=== PATIENT | male | born 1965 | race Caucasian/White ===

== ENCOUNTER → 2016-09-29 | Day surgery (SDC) | payer BC, OTHER ==
--- NOTE | 2016-09-22 10:17 | CR ---
DATE OF CONSULTATION: 09/22/2016 REQUESTING PHYSICIAN: Dr. Amin. He is scheduled for right eye surgery with a lens implant. History of old injury to right eye. Prior surgery on right eye. No history of known cardiopulmonary disease. He smokes an occasional cigar. No cardiopulmonary symptoms with usual activities which far exceed four mets. Otherwise he is fairly healthy and has no limitations. MEDICATIONS: None. ALLERGIES: MORPHINE. SOCIAL HISTORY: Prior drug abuse. He has been clean for quite sometime. History of colon polyp (hyperplastic), laceration repair. Hyperlipidemia. Previous right eye surgery. FAMILY HISTORY: Negative for cardiac or pulmonary disease. Cardiopulmonary review of systems is negative. PHYSICAL EXAMINATION: Blood pressure is 120/80. HEENT: Eye exam per Dr. Amin. Carotids are normal. No bruits. No jugular venous distention (JVD). Heart: Was regular rate and rhythm. Chest: Was clear to auscultation. Abdomen is unremarkable. Extremities: No edema. IMPRESSION/PLAN: Healthy 51-year-old. No contraindications to scheduled ophthalmologic surgery.
[~2016-09-29] VITALS: Ht 172.7 cm; Wt 83.9 kg
[~2016-09-29] MED LIST: ACETYLCHOLINE OPHTH SOLN 1% 2ML As Ordered ONE; BSS with VANC/TOB/EPI for EYE CASES IR ONE; CEFUROXIME 1MG/0.1ML INTRACAMERAL INJ ICAM ONE; CYCLOPENTOLATE 2% OPHTH SOLN As Ordered ONE; CYCLOPENTOLATE 2% OPHTH SOLN OD ONE; HEALON DUET (HEALON 10MG/ML 0.55ML & HEALON ENDOCOAT 30MG/ML 0.85ML) As Ordered ONE; KETO5OPD OD; LIDOCAINE 2% W/EPIN INJ 20ML **PRES FREE As Ordered ONE; LIDOCAINE 4% INJ 5 ML AMP As Ordered ONE; LIDOCAINE 4% INJ 5 ML AMP OU ONE; MIDAZOLAM INJ 2 MG/2 ML VIAL (J2250) As Ordered ONE; OFLOXACIN 0.3 % (OCUFLOX) OPTH SOL 5ML OD ONE; PHENYLEPHRINE 2.5% OPHTH SOL 2ML As Ordered ONE; PHENYLEPHRINE 2.5% OPHTH SOL 2ML OD ONE; POVIDONE-IODINE 5% OPHTH PREP SOL 30ML As Ordered ONE; PREDOPD OD; PROPOFOL 200 MG/20 ML VIAL As Ordered ONE; TOBR0.3S OP; TOBRADEX OPHTH OINT 3.5 GM As Ordered ONE; TRIAMCINOLONE ACETONIDE SUSP 40 MG/ML VIAL (J3301) As Ordered ONE; TROPICAMIDE 1% OPHTH SOLN 2 ML As Ordered ONE; TROPICAMIDE 1% OPHTH SOLN 2 ML OD ONE; fentaNYL 100 MCG/2 ML INJECTION (J3010) As Ordered ONE
[2016-09-29 09:50] VITALS: BP 130/82
--- NOTE | 2016-09-30 08:43 | RO ---
DATE OF PROCEDURE: 09/29/2016 PREPROCEDURE DIAGNOSIS: Aphacia left eye. POSTPROCEDURE DIAGNOSIS: Aphacia left eye. PROCEDURE: Secondary intraocular lens Z9003 that was glued with the Haptic. SURGEON: Marli Amin MD [employer] MET[employer]ING SUPERVISOR: None. ANESTHESIA: COMPLICATIONS: None. INDICATION: Poor vision interfering with daily activities. DESCRIPTION OF PROCEDURE: The patient was brought to the operating room and laid in supine position. The right eye was prepped and draped in a sterile fashion for ophthalmic surgery and a lid speculum was placed. Prior to that, 4 mL of 4% Lidocaine was then given in a retrobulbar fashion followed by massaging of the globe for about 15 minutes. Lid speculum was placed. A sideport incision was made and EndoCoat was injected into the anterior chamber. A supratemporal clear corneal incision was then made with a 2.5 keratome. At 3 o'clock and 9 o'clock conjunctival porotomies were done and a scleral flap was created after hemostasis was obtained. The flap measured about 2.5 mm x 3 mm on either side. A 25-gauge needle was then used to create tracks for the future Haptic insertion, both at 3 o'clock and at 9 o'clock. The lens was then placed into the anterior chamber through a cartridge. The leading Haptic was grabbed with the help of retinal forceps entered underneath the scleral flap and drawn outside the eye and held in place by a mosquito clamp. Subsequently, the trailing Haptic was also introduced into the anterior chamber and with the help of the retinal forceps introduced on 3 o'clock that Haptic was also exteriorized. Both the Haptics were then fed into the tunnel created by the 25-gauge needle, followed by drying up of the scleral bed and gluing the flap over the scleral bed. Conjunctiva was closed using forceps cautery and #8-0 Vicryl sutures. All the wounds were tested for leaks and no leaks were noted. Lid speculum was removed. Excess viscoelastic was aspirated prior to that. Intracameral injection of moxifloxacin was given. TobraDex ointment was applied. Eye was patched. The patient was returned to the recovery room in stable condition.
== END | disposition home or self-care (01) ==
LOC: M SDC 06:10
PROVIDERS: ATTEND Ophthalmology
DX: H27.02 Aphakia, left eye (principal); E78.4 Other hyperlipidemia; F17.210 Nicotine dependence, cigarettes, uncomplicated
CPT/HCPCS: 66985; A6024; J2250; J3010; J3301

== ENCOUNTER 2016-10-05 20:45 | Emergency (ER) | payer BC ==
[~2016-10-05] VITALS: Ht 172.7 cm; Wt 83.9 kg
[2016-10-05 20:46] VITALS: BP 155/100
[2016-10-05] MEDS ORDERED: KETO5OPD OD (21:23)
[2016-10-05] MEDS ORDERED: TOBR0.3S OP (21:23)
[2016-10-05] MEDS ORDERED: PREDOPD OD (21:23)
[2016-10-05] MEDS ORDERED: TETRACAINE 0.5% OPHTH SOLN 4ML OD ONE (22:30)
[2016-10-05] MEDS ORDERED: FLUORESCEIN OPHTH 1 MG STRIP OD ONE (22:30)
[2016-10-05] MEDS ORDERED: OXYCODONE/APAP 5MG/325MG(BULK) 1 TAB TAB PO ONE (23:00)
[2016-10-05] MEDS ORDERED: AcetaZOLAMIDE 250 MG TAB PO ONE (23:00)
== END 2016-10-05 23:16 | disposition home or self-care (01) ==
LOC: M ED 22:14
DX: H16.001 Unspecified corneal ulcer, right eye (principal); H40.89 Other specified glaucoma; Z88.5 Allergy status to narcotic agent; F17.210 Nicotine dependence, cigarettes, uncomplicated

== ENCOUNTER 2018-06-14 09:56 | Day surgery (SDC) | payer BC ==
[~2018-06-14 09:56] MED LIST changes: -ACETYLCHOLINE OPHTH SOLN 1% 2ML As Ordered ONE; -BSS with VANC/TOB/EPI for EYE CASES IR ONE; -CEFUROXIME 1MG/0.1ML INTRACAMERAL INJ ICAM ONE; -CYCLOPENTOLATE 2% OPHTH SOLN As Ordered ONE; -CYCLOPENTOLATE 2% OPHTH SOLN OD ONE; -HEALON DUET (HEALON 10MG/ML 0.55ML & HEALON ENDOCOAT 30MG/ML 0.85ML) As Ordered ONE; -KETO5OPD OD; +KETOROLAC 60 MG/2 ML VIAL (J1885) As Ordered; +LIDOCAINE 2% INJ 100 MG/5 ML SDV (FOR ANES.) As Ordered; -LIDOCAINE 2% W/EPIN INJ 20ML **PRES FREE As Ordered ONE; -LIDOCAINE 4% INJ 5 ML AMP As Ordered ONE; -LIDOCAINE 4% INJ 5 ML AMP OU ONE; +MIDAZOLAM INJ 2 MG/2 ML VIAL (J2250) As Ordered; -MIDAZOLAM INJ 2 MG/2 ML VIAL (J2250) As Ordered ONE; -OFLOXACIN 0.3 % (OCUFLOX) OPTH SOL 5ML OD ONE; +ONDANSETRON 4MG/2ML VIAL (J2405) As Ordered; -PHENYLEPHRINE 2.5% OPHTH SOL 2ML As Ordered ONE; -PHENYLEPHRINE 2.5% OPHTH SOL 2ML OD ONE; -POVIDONE-IODINE 5% OPHTH PREP SOL 30ML As Ordered ONE; -PREDOPD OD; +PROPOFOL 200 MG/20 ML VIAL As Ordered; -PROPOFOL 200 MG/20 ML VIAL As Ordered ONE; -TOBR0.3S OP; -TOBRADEX OPHTH OINT 3.5 GM As Ordered ONE; -TRIAMCINOLONE ACETONIDE SUSP 40 MG/ML VIAL (J3301) As Ordered ONE; -TROPICAMIDE 1% OPHTH SOLN 2 ML As Ordered ONE; -TROPICAMIDE 1% OPHTH SOLN 2 ML OD ONE; +dexameTHASONE 4 MG/ML 1ML VIAL (J1100) As Ordered; +fentaNYL 100 MCG/2 ML INJECTION (J3010) As Ordered; -fentaNYL 100 MCG/2 ML INJECTION (J3010) As Ordered ONE
[2018-06-14] MEDS ORDERED: LR 1,000 ML IV (10:15)
[2018-06-14] MEDS: ceFAZolin SOD 1 GM in D5W MINI-BAG PLUS 50 ML IV (11:45)
[2018-06-14] MEDS: BUPIVACAINE/EPIN 0.25% 30 ML VIAL As Ordered (11:53)
== END 2018-06-14 13:00 | disposition home or self-care (01) ==
LOC: M SDC 09:56
DX: D17.39 Benign lipomatous neoplasm of skin and subcutaneous tissue of other sites (principal); F17.210 Nicotine dependence, cigarettes, uncomplicated
CPT/HCPCS: 11426

== ENCOUNTER → 2019-03-18 | Outpatient (CLI) | payer BC ==
[~2019-03-18] MED LIST changes: +KETO0.5S2 OD; -KETOROLAC 60 MG/2 ML VIAL (J1885) As Ordered; -LIDOCAINE 2% INJ 100 MG/5 ML SDV (FOR ANES.) As Ordered; -MIDAZOLAM INJ 2 MG/2 ML VIAL (J2250) As Ordered; -ONDANSETRON 4MG/2ML VIAL (J2405) As Ordered; +PREDOPD OD; -PROPOFOL 200 MG/20 ML VIAL As Ordered; +TOBR0.3S OP; -dexameTHASONE 4 MG/ML 1ML VIAL (J1100) As Ordered; -fentaNYL 100 MCG/2 ML INJECTION (J3010) As Ordered
[2019-03-18 18:48] LABS: BASO # 0.1 10^3/uL (0.0-0.2); BASO % 1.1 % (0.0-1.0); EOS # 0.2 10^3/uL (0.0-0.50); EOS % 3.8 % (0.0-3.0); HEMATOCRIT 45.2 % (42.0-52.0); HEMOGLOBIN 15.3 g/dl (13.5-17.5); LYMPH # 1.3 10^3/uL (1.5-4.5); LYMPH % 28.1 % (24.0-44.0); MEAN CORPUSCULAR HEMOGLOBIN 30.5 pg (27.0-33.0); MEAN CORPUSCULAR HGB CONC 33.8 g/dl (32.0-36.5); MEAN CORPUSCULAR VOLUME 90.2 fl (80.0-96.0); MONO # 0.6 10^3/uL (0.0-0.8); MONO % 11.6 % (0.0-5.0); NEUTROPHILS # 2.6 10^3/uL (1.8-7.7); PLATELET COUNT, AUTOMATED 217 10^3/uL (150-450); RED BLOOD COUNT 5.01 10^6/uL (4.30-6.10); WHITE BLOOD COUNT 4.7 10^3/uL (4.0-10.0)
[2019-03-18 18:59] LABS: ALBUMIN 3.9 GM/DL (3.2-5.2); ALT/SGPT 22 U/L (12-78); BILIRUBIN,TOTAL 0.3 MG/DL (0.2-1.0); BLOOD UREA NITROGEN 17 MG/DL (7-18); CALCIUM LEVEL 8.9 MG/DL (8.5-10.1); CARBON DIOXIDE LEVEL 29 MEQ/L (21-32); CHLORIDE LEVEL 107 MEQ/L (98-107); CHOLESTEROL LEVEL 181 MG/DL (<200); CHOLESTEROL RISK RATIO 3.232 (<5); FREE T4 0.97 NG/DL (0.76-1.46); GLOMERULAR FILTRATION RATE > 60.0 (>56); GLUCOSE, FASTING 100 MG/DL (70-100); HDL CHOLESTEROL 56 MG/DL (>40); LDL CHOLESTEROL 113 MG/DL (<100); NON-HDL-C 125 MG/DL; POTASSIUM SERUM 4.7 MEQ/L (3.5-5.1); SODIUM LEVEL 140 MEQ/L (136-145); TOTAL PROTEIN 6.7 GM/DL (6.4-8.2); TRIGLYCERIDES LEVEL 59 MG/DL (<150)
[2019-03-21 14:29] LABS: PSA TOTAL 0.4 ng/mL (0.0-4.0)
== END ==
LOC: M WUC 08:33
PROVIDERS: ATTEND Physician Assistant
DX: J20.9 Acute bronchitis, unspecified (principal); Z13.0 Encounter for screening for diseases of the blood and blood-forming organs and certain disorders involving the immune mechanism; Z13.220 Encounter for screening for lipoid disorders; Z13.29 Encounter for screening for other suspected endocrine disorder; Z12.5 Encounter for screening for malignant neoplasm of prostate

== ENCOUNTER → 2019-07-15 | Outpatient (REF) | payer OTHER, BC | LOC: M LAB REF 10:17 | PROVIDERS: ATTEND Physician Assistant | DX: N45.1 Epididymitis (principal) ==

== ENCOUNTER → 2019-07-21 | Outpatient (CLI) | payer OTHER ==
--- NOTE | 2019-07-21 08:18 | REP ---
Clinical: Pain. Palpable mass along the left brooke scrotum. Technique: Real time king scale ultrasound examination using linear high frequency transducer with color Doppler evaluation. Findings: The bilateral testicles are normal in contour, size, echogenicity without focal mass lesion, infectious/inflammatory process, or torsion. The bilateral epididymi demonstrate few scattered cysts measuring up to 3 mm bilaterally. A small simple right hydrocele is identified along with partially thrombosed left-sided varicoceles measuring up to 2.5 mm luminal diameter. Right testicle measures 4.2 x 1.9 x 2.5 cm. Left testicle measures 4.2 x 2.0 x 2.6 cm. At the site of palpable mass along the left brooke scrotum, there is scrotal wall thickening and a central somewhat hypoechoic complex area measuring roughly 8 x 8 x 3 mm which may represent small phlegmon given history of recent epididymitis and antibiotic therapy. No further abnormality or drainable collection is appreciated. Impression: 1. Area of palpable mass corresponds to hypoechoic complex collection in the scrotal wall with surrounding edema suggesting the possibility of resolving phlegmon given the patient's history of recent epididymitis and antibiotic therapy. 2. Nonacute findings include partially thrombosed small left-sided varicoceles and small simple right hydrocele along with few bilateral epididymal cysts up to 3 mm. Electronically Signed by Ye Cadena MD 07/21/2019 08:10 A
== END ==
LOC: M RAD 06:46
PROVIDERS: ATTEND Physician Assistant
DX: N45.1 Epididymitis (principal); N43.3 Hydrocele, unspecified; I86.1 Scrotal varices

== ENCOUNTER → 2020-03-13 | Outpatient (REF) | payer BC, OTHER | LOC: M LAB REF 16:34 | PROVIDERS: ATTEND Family Medicine | DX: H60.8X1 Other otitis externa, right ear (principal) ==

== ENCOUNTER → 2020-04-19 | Outpatient (CLI) | payer BC, OTHER ==
[2020-04-19 13:14] LABS: BASO # 0.1 10^3/uL (0.0-0.2); BASO % 1.3 % (0.0-1.0); EOS # 0.2 10^3/uL (0.0-0.5); EOS % 3.2 % (0.0-3.0); HEMOGLOBIN 15.1 g/dl (13.5-17.5); LYMPH # 1.7 10^3/uL (1.5-5.0); MEAN CORPUSCULAR HEMOGLOBIN 30.6 pg (27.0-33.0); MEAN CORPUSCULAR HGB CONC 34.3 g/dl (32.0-36.5); MEAN CORPUSCULAR VOLUME 89.2 fl (80.0-96.0); MONO # 0.5 10^3/uL (0.0-0.8); MONO % 11.1 % (0.0-5.0); NEUTROPHILS # 2.2 10^3/uL (1.5-8.5); NEUTROPHILS % 47.2 % (36.0-66.0); PLATELET COUNT, AUTOMATED 228 10^3/uL (150-450); RED BLOOD COUNT 4.93 10^6/uL (4.30-6.10); WHITE BLOOD COUNT 4.7 10^3/uL (4.0-10.0)
[2020-04-19 13:35] LABS: ALBUMIN 3.9 GM/DL (3.2-5.2); ALT/SGPT 22 U/L (12-78); BILIRUBIN,TOTAL 0.5 MG/DL (0.2-1.0); BLOOD UREA NITROGEN 18 MG/DL (7-18); CALCIUM LEVEL 9.2 MG/DL (8.5-10.1); CARBON DIOXIDE LEVEL 28 MEQ/L (21-32); CHLORIDE LEVEL 107 MEQ/L (98-107); CHOLESTEROL LEVEL 216 MG/DL (<200); CHOLESTEROL RISK RATIO 3.857 (<5); CREATININE FOR GFR 0.99 MG/DL (0.70-1.30); FREE T4 1.18 NG/DL (0.76-1.46); GLOMERULAR FILTRATION RATE > 60.0 (>56); GLUCOSE, FASTING 87 MG/DL (70-100); HDL CHOLESTEROL 56 MG/DL (>40); LDL CHOLESTEROL 144 MG/DL (<100); NON-HDL-C 160 MG/DL; POTASSIUM SERUM 4.7 MEQ/L (3.5-5.1); SODIUM LEVEL 140 MEQ/L (136-145); TOTAL PROTEIN 7.1 GM/DL (6.4-8.2); TRIGLYCERIDES LEVEL 81 MG/DL (<150)
[2020-04-23 23:07] LABS: PSA TOTAL 0.6 ng/mL (0.0-4.0)
== END ==
LOC: M WUC 09:01
PROVIDERS: ATTEND Physician Assistant
DX: Z00.00 Encounter for general adult medical examination without abnormal findings (principal); Z13.0 Encounter for screening for diseases of the blood and blood-forming organs and certain disorders involving the immune mechanism; Z13.1 Encounter for screening for diabetes mellitus; Z13.29 Encounter for screening for other suspected endocrine disorder; Z13.220 Encounter for screening for lipoid disorders

== ENCOUNTER → 2020-04-22 | Outpatient (REF) | payer OTHER | LOC: M LAB REF 16:08 | PROVIDERS: ATTEND Family Medicine | DX: H60.312 Diffuse otitis externa, left ear (principal) ==

== ENCOUNTER → 2020-12-17 | Outpatient (REF) | payer OTHER | LOC: M LAB REF 15:13 | PROVIDERS: ATTEND Physician Assistant Medical | DX: H92.12 Otorrhea, left ear (principal) ==

== ENCOUNTER → 2021-07-15 | Outpatient (CLI) | payer OTHER ==
--- NOTE | 2021-07-15 17:31 | REP ---
INDICATION: DYSPNEA COMPARISON: None. TECHNIQUE: Standard helical technique without contrast FINDINGS: There is no mediastinal or hilar adenopathy. There are no pleural or pericardial effusions. The imaged upper abdomen and imaged osseous structures are within normal limits. Evaluation of the lung gonzalez shows lung field hyperexpansion and evidence of early bullous emphysematous changes particularly in the apical regions. In the inferior right upper lobe abutting the fissure to the right middle lobe there is a 7 mm size nodule. In the right lower lobe abutting the major fissure there is a 7 mm size nodule. In the left lower lobe abutting the major fissure there is 5 mm size nodule. Just superior to this also in the left lower lobe on also abutting the major fissure there is 6 mm size nodule. In the lateral basal segment of the left lower lobe there is a pleural based 5 mm size nodule. Incidental calcified granulomas are seen in the upper lobe bilaterally. IMPRESSION: 1. Multiple pulmonary nodules as described above. According to the revised Fleischner society criteria the large nodules represent category 3 lesions for which a six-month follow-up chest CT is recommended. 2. Chronic lung field changes as described above. <Electronically signed by Jacob Sumner > 07/15/21 [id number]
== END ==
LOC: M RAD 16:08
PROVIDERS: ATTEND Physician Assistant
DX: R06.00 Dyspnea, unspecified (principal)

== ENCOUNTER → 2021-12-05 | Outpatient (CLI) | payer OTHER ==
[~2021-12-05] MED LIST changes: -TOBR0.3S OP; +TOBR0.3S10 OP
[2021-12-05 07:49] LABS: BASO # 0.1 10^3/uL (0.0-0.2); BASO % 1.1 % (0.0-1.0); EOS # 0.2 10^3/uL (0.0-0.5); EOS % 4.3 % (0.0-3.0); HEMATOCRIT 41.8 % (42.0-52.0); HEMOGLOBIN 14.4 g/dl (13.5-17.5); LYMPH # 1.7 10^3/uL (1.5-5.0); LYMPH % 36.5 % (24.0-44.0); MEAN CORPUSCULAR HEMOGLOBIN 30.1 pg (27.0-33.0); MEAN CORPUSCULAR HGB CONC 34.4 g/dl (32.0-36.5); MEAN CORPUSCULAR VOLUME 87.4 fl (80.0-96.0); MONO # 0.5 10^3/uL (0.0-0.8); MONO % 11.7 % (2.0-8.0); NEUTROPHILS # 2.1 10^3/uL (1.5-8.5); NEUTROPHILS % 45.8 % (36.0-66.0); PLATELET COUNT, AUTOMATED 208 10^3/uL (150-450); RED BLOOD COUNT 4.78 10^6/uL (4.30-6.10); WHITE BLOOD COUNT 4.6 10^3/uL (4.0-10.0)
[2021-12-05 08:07] LABS: HEMOGLOBIN A1c 5.5 %
[2021-12-05 08:21] LABS: ALBUMIN 3.9 GM/DL (3.2-5.2); ALT/SGPT 23 U/L (12-78); BILIRUBIN,TOTAL 0.5 MG/DL (0.2-1.0); BLOOD UREA NITROGEN 16 MG/DL (7-18); CALCIUM LEVEL 8.7 MG/DL (8.5-10.1); CARBON DIOXIDE LEVEL 29 MEQ/L (21-32); CHLORIDE LEVEL 108 MEQ/L (98-107); CHOLESTEROL LEVEL 185 MG/DL (<200); CHOLESTEROL RISK RATIO 2.936 (<5); CREATININE FOR GFR 1.07 MG/DL (0.70-1.30); FREE T4 1.11 NG/DL (0.76-1.46); GLOMERULAR FILTRATION RATE > 60.0 (>56); GLUCOSE, FASTING 97 MG/DL (70-100); HDL CHOLESTEROL 63 MG/DL (>40); LDL CHOLESTEROL 109 MG/DL (<100); NON-HDL-C 122 MG/DL; POTASSIUM SERUM 4.9 MEQ/L (3.5-5.1); SODIUM LEVEL 138 MEQ/L (136-145); TOTAL PROTEIN 6.8 GM/DL (6.4-8.2); TRIGLYCERIDES LEVEL 64 MG/DL (<150)
== END ==
LOC: M RAD 06:27
PROVIDERS: ATTEND Physician Assistant
DX: R91.1 Solitary pulmonary nodule (principal); Z13.29 Encounter for screening for other suspected endocrine disorder; E78.00 Pure hypercholesterolemia, unspecified; Z12.5 Encounter for screening for malignant neoplasm of prostate
CPT/HCPCS: 36415; 71250; 80053; 80061; 83036; 84439; 84443; 85025; G0103

== ENCOUNTER → 2022-02-18 | Outpatient (CLI) | payer OTHER ==
[~2022-02-18] MED LIST changes: +ALBU8.5H INH; +BUDE10.7 INH
== END ==
LOC: M LABSMTC 09:54
PROVIDERS: ATTEND Anesthesiology
DX: Z01.812 Encounter for preprocedural laboratory examination (principal); Z20.822 Contact with and (suspected) exposure to COVID-19

== ENCOUNTER 2022-02-19 07:17 | Day surgery (SDC) | payer OTHER ==
[~2022-02-19] VITALS: Ht 172.7 cm; Wt 84.8 kg
[~2022-02-19 07:17] MED LIST changes: +LIDOCAINE 2% 100MG/5ML SDV (FOR ANES.) As Ordered ONE; +NS 1,000 ML IV ONE; +propofoL 200 MG/20 ML VIAL As Ordered ONE
[2022-02-19] MEDS ORDERED: NS 1,000 ML IV SCH (07:40)
[2022-02-19 09:00] VITALS: BP 134/79
== END 2022-02-19 09:12 | disposition home or self-care (01) ==
LOC: M OPP 07:17
PROVIDERS: ATTEND Surgery
DX: Z12.11 Encounter for screening for malignant neoplasm of colon (principal); Z86.010 Personal history of colon polyps; Z80.0 Family history of malignant neoplasm of digestive organs; J44.9 Chronic obstructive pulmonary disease, unspecified; Z87.891 Personal history of nicotine dependence; Z79.1 Long term (current) use of non-steroidal anti-inflammatories (NSAID); Z79.51 Long term (current) use of inhaled steroids; Z88.5 Allergy status to narcotic agent

== ENCOUNTER → 2022-10-30 | Outpatient (CLI) | payer OTHER ==
[~2022-10-30] MED LIST changes: -LIDOCAINE 2% 100MG/5ML SDV (FOR ANES.) As Ordered ONE; -NS 1,000 ML IV ONE; -propofoL 200 MG/20 ML VIAL As Ordered ONE
== END ==
LOC: M PLAIMG 10:40
PROVIDERS: ATTEND Family Medicine
DX: M77.01 Medial epicondylitis, right elbow (principal)

== ENCOUNTER → 2023-01-01 | Outpatient (CLI) | payer OTHER | LOC: M RAD 17:30 | PROVIDERS: ATTEND Physician Assistant | DX: R91.1 Solitary pulmonary nodule (principal) ==

== ENCOUNTER → 2023-04-09 | Outpatient (CLI) | payer OTHER ==
[2023-04-09 12:52] LABS: BASO # 0.1 10^3/uL (0.0-0.2); BASO % 1.1 % (0.0-1.0); EOS # 0.2 10^3/uL (0.0-0.5); EOS % 3.9 % (0.0-3.0); HEMATOCRIT 42.2 % (42.0-52.0); HEMOGLOBIN 14.7 g/dl (13.5-17.5); LYMPH # 1.1 10^3/uL (1.5-5.0); LYMPH % 24.3 % (24.0-44.0); MEAN CORPUSCULAR HEMOGLOBIN 30.7 pg (27.0-33.0); MEAN CORPUSCULAR HGB CONC 34.8 g/dl (32.0-36.5); MEAN CORPUSCULAR VOLUME 88.1 fl (80.0-96.0); MONO # 0.6 10^3/uL (0.0-0.8); MONO % 12.9 % (2.0-8.0); NEUTROPHILS # 2.6 10^3/uL (1.5-8.5); NEUTROPHILS % 57.6 % (36.0-66.0); PLATELET COUNT, AUTOMATED 205 10^3/uL (150-450); RED BLOOD COUNT 4.79 10^6/uL (4.30-6.10); WHITE BLOOD COUNT 4.6 10^3/uL (4.0-10.0)
[2023-04-09 13:08] LABS: HEMOGLOBIN A1c 5.6 % (4.0-6.0)
[2023-04-09 13:36] LABS: THYROID STIMULATING HORMONE 1.466 uIU/ML (0.55-4.78)
[2023-04-09 13:37] LABS: ALKALINE PHOSPHATASE 66 U/L (46-116); ALT/SGPT 24 U/L (7.0-40); AST/SGOT 11 U/L (<34); BILIRUBIN,TOTAL 0.8 MG/DL (0.3-1.2); BLOOD UREA NITROGEN 15 MG/DL (9-23); CARBON DIOXIDE LEVEL 30 MMOL/L (20-31); CHLORIDE LEVEL 105 MMOL/L (98-107); CHOLESTEROL LEVEL 153 MG/DL (<200); CREATININE FOR GFR 1.06 MG/DL (0.70-1.30); GLOMERULAR FILTRATION RATE > 60.0 (>56); GLUCOSE, FASTING 99 MG/DL (60-100); HDL CHOLESTEROL 61.1 MG/DL (>40); LDL CHOLESTEROL 78.3 MG/DL (<100); NON-HDL-C 91.9 MG/DL; POTASSIUM SERUM 4.6 MMOL/L (3.5-5.1); SODIUM LEVEL 139 MMOL/L (136-145); TOTAL PROTEIN 6.9 G/DL (5.7-8.2); TRIGLYCERIDES LEVEL 68 MG/DL (<150)
== END ==
LOC: M WUC 09:04
PROVIDERS: ATTEND Physician Assistant
DX: I10 Essential (primary) hypertension (principal); Z87.891 Personal history of nicotine dependence
CPT/HCPCS: 36415; 80053; 80061; 83036; 84439; 84443; 85025; G0103

== ENCOUNTER → 2024-08-19 | Outpatient (CLI) | payer OTHER ==
[2024-08-19 09:50] LABS: HEMOGLOBIN 14.7 g/dl (13.5-17.5); MEAN CORPUSCULAR HEMOGLOBIN 30.5 pg (27.0-33.0); MEAN CORPUSCULAR HGB CONC 34.2 g/dl (32.0-36.5); MEAN CORPUSCULAR VOLUME 89.2 fl (80.0-96.0); PLATELET COUNT, AUTOMATED 198 10^3/uL (150-450); RED BLOOD COUNT 4.82 10^6/uL (4.30-6.10); WHITE BLOOD COUNT 4.5 10^3/uL (4.0-10.0)
[2024-08-19 10:17] LABS: ALKALINE PHOSPHATASE 65 U/L (40-129); ALT/SGPT 27 U/L (7.0-40); AST/SGOT 15 U/L (<34); BILIRUBIN,TOTAL 0.6 MG/DL (0.3-1.2); BLOOD UREA NITROGEN 24 MG/DL (9-23); CALCIUM LEVEL 9.1 MG/DL (8.5-10.1); CARBON DIOXIDE LEVEL 29 MMOL/L (20-31); CHLORIDE LEVEL 108 MMOL/L (98-107); CHOLESTEROL LEVEL 161 MG/DL (<200); CHOLESTEROL RISK RATIO 2.49 (<5); CREATININE FOR GFR 1.15 MG/DL (0.70-1.30); GLOMERULAR FILTRATION RATE > 60.0 (>56); GLUCOSE, FASTING 101 MG/DL (60-100); HDL CHOLESTEROL 64.6 MG/DL (>40); NON-HDL-C 96.4 MG/DL; POTASSIUM SERUM 5.1 MMOL/L (3.5-5.1); SODIUM LEVEL 142 MMOL/L (136-145); TRIGLYCERIDES LEVEL 47 MG/DL (<150)
== END ==
LOC: M LAB 09:23
PROVIDERS: ATTEND Family Medicine
DX: R06.00 Dyspnea, unspecified (principal); I25.10 Atherosclerotic heart disease of native coronary artery without angina pectoris

== ENCOUNTER → 2024-10-06 | Outpatient (CLI) | payer OTHER | LOC: M RAD 07:09 | PROVIDERS: ATTEND Physician Assistant | DX: J43.9 Emphysema, unspecified (principal); R06.00 Dyspnea, unspecified; I10 Essential (primary) hypertension; R91.8 Other nonspecific abnormal finding of lung field ==

== ENCOUNTER → 2025-03-23 | Outpatient (CLI) | payer OTHER ==
[2025-03-23 11:44] LABS: BASO # 0.1 10^3/uL (0.0-0.2); BASO % 0.8 % (0.0-1.0); EOS # 0.2 10^3/uL (0.0-0.5); EOS % 2.9 % (0.0-3.0); LYMPH # 1.9 10^3/uL (1.5-5.0); LYMPH % 32.6 % (24.0-44.0); MONO # 0.6 10^3/uL (0.0-0.8); MONO % 9.7 % (2.0-8.0); NEUTROPHILS # 3.2 10^3/uL (1.5-8.5); NEUTROPHILS % 53.5 % (36.0-66.0); PLATELET COUNT, AUTOMATED 207 10^3/uL (150-450)
[2025-03-23 12:05] LABS: ALT/SGPT 29.0 U/L (7.0-40); AST/SGOT 17.0 U/L (<34); CALCIUM LEVEL 9.4 MG/DL (8.3-10.6); CARBON DIOXIDE LEVEL 30.0 MMOL/L (20-31); CHLORIDE LEVEL 106.0 MMOL/L (98-107); CREATININE FOR GFR 1.02 MG/DL (0.70-1.30); GLOMERULAR FILTRATION RATE 84.1 (>49); POTASSIUM SERUM 4.2 MMOL/L (3.5-5.1); SODIUM LEVEL 144.0 MMOL/L (136-145)
[2025-03-23 16:44] LABS: APPEARANCE, URINE CLEAR (CLEAR); BACTERIA, URINE AUTO NEGATIVE (NEGATIVE); BILIRUBIN, URINE AUTO NEGATIVE (NEGATIVE); BLOOD, URINE BLOOD NEGATIVE (NEGATIVE); GLUCOSE, URINE (UA) AUTO NEGATIVE (NEGATIVE); KETONE, URINE AUTO NEGATIVE (NEGATIVE); LEUKOCYTE ESTERASE, URINE AUTO NEGATIVE (NEGATIVE); MUCUS, URINE SMALL (NEGATIVE); NITRITE, URINE AUTO NEGATIVE (NEGATIVE); PROTEIN, URINE AUTO NEGATIVE (NEGATIVE); RBC, URINE AUTO 0 /HPF (0-3); SPECIFIC GRAVITY URINE AUTO 1.011 (1.002-1.035); SQUAMOUS EPITHELIAL CELL UR AU 0 /HPF (0-6); UROBILINOGEN, URINE AUTO 0.2 mg/dL (0.0-2.0); WBC, URINE AUTO 0 /HPF (0-3)
[2025-03-27 12:08] LABS: PSA % FREE 50.0 % (calc) (>25); PSA FREE 0.3 ng/mL; PSA TOTAL 0.6 ng/mL (< OR = 4.0)
== END ==
LOC: M LAB 10:46
PROVIDERS: ATTEND Physician Assistant
DX: R35.0 Frequency of micturition (principal)

== ENCOUNTER 2025-06-13 09:19 | Day surgery (SDC) | payer OTHER ==
[~2025-06-13] VITALS: Ht 172.7 cm; Wt 86.3 kg
[~2025-06-13 09:19] MED LIST changes: +ANOR1AER; +ATOR80TA59 PO; +VALS1TAB66 PO; +XELP0.00
[2025-06-13 10:52] VITALS: BP 141/85; O2SAT 97
== END 2025-06-13 11:06 | disposition home or self-care (01) ==
LOC: M OPP 09:19
PROVIDERS: ATTEND Internal Medicine Gastroenterology
DX: Z12.11 Encounter for screening for malignant neoplasm of colon (principal); K64.0 First degree hemorrhoids; Z88.5 Allergy status to narcotic agent; Z79.51 Long term (current) use of inhaled steroids; Z79.899 Other long term (current) drug therapy; J44.9 Chronic obstructive pulmonary disease, unspecified